=== PATIENT | female | born 1985 | race Caucasian/White ===

== ENCOUNTER 2017-04-14 17:37 | Emergency (ER) | END 2017-04-15 00:46 | disposition home or self-care (01) ==

== ENCOUNTER 2017-07-24 20:55 | Inpatient (IN) | END 2017-07-26 08:00 | disposition home or self-care (01) | DRG 781 ==

== ENCOUNTER 2017-10-21 20:02 | Outpatient (CLI) | END 2017-10-21 22:02 | disposition home or self-care (01) ==